=== PATIENT | male | born 1985 | race Two or more races ===

== ENCOUNTER 2017-11-24 18:17 | Emergency (ER) | payer SELFPAY ==
[~2017-11-24] VITALS: Ht 172.7 cm; Wt 86.2 kg
[2017-11-24 18:23] VITALS: BP 149/83
--- NOTE | 2017-11-24 18:33 | NUR ---
ON/OFF LEFT EYE PAIN X 1 WEEK, PAIN IS WORSE AND CONSTANT TODAY
[2017-11-24] MEDS ORDERED: TETRACAINE HCL/PF 0.5% UD 2 ML BOTTLE ONE (18:47)
[2017-11-24] MEDS ORDERED: FLUORESCEIN SODIUM OPHTH 1 EA STRIP ONE (18:47)
[2017-11-24] MEDS: FLUORESCEIN SODIUM OPHTH 1 EA STRIP OP ONE (18:49)
[2017-11-24] MEDS: TETRACAINE HCL/PF 0.5% UD 2 ML BOTTLE OP ONE (18:49)
--- NOTE | 2017-11-24 19:12 | NUR ---
RECEIVED REPORT FROM KAREN HOFFMAN FOR ERIC. PT RESTING IN BED WITH NO S/S OF DISTRESS NOTED.
== END 2017-11-24 20:14 | disposition home or self-care (01) ==
LOC: ER 18:18
DX: S05.02XA Injury of conjunctiva and corneal abrasion without foreign body, left eye, initial encounter (principal); X58.XXXA Exposure to other specified factors, initial encounter; Y93.89 Activity, other specified; Y92.89 Other specified places as the place of occurrence of the external cause; Y99.0 Civilian activity done for income or pay
CPT/HCPCS: A4606; J7030; Z7610